=== PATIENT | female | born 1985 | race Caucasian/White ===

== ENCOUNTER → 2022-01-19 12:49 | Outpatient (CLI) | payer OTHER, SELFPAY ==
--- NOTE | ~2022-01-19 | XR_ITS ---
[id number]_CR 01/19/2022 13:05 Indication: Chronic neck pain Procedure: 3 views of the cervical spine Comparison: No prior studies for comparison. 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 Vertebral body heights are maintained. Remai nder of the disc spaces are preserved. No prevertebral soft tissue swelling. There is mild multilevel facet hypertrophy. Odontoid process is normal. Lateral masses normally aligned. Lung apices are norm al. Impression: 1: No acute abnormality of the cervical spine. 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 Reviewed, dictated and finalized at location A. ER OPERATOR Impression: 1: No acute abnormality of the cervical spine. 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
== END ==
PROVIDERS: PCP Physician Assistant; Visit Provider Chiropractor
DX: M54.2 Cervicalgia (principal); G89.29 Other chronic pain; Z98.1 Arthrodesis status
CPT/HCPCS: 72040